=== PATIENT | male | born 1965 | race Caucasian/White ===

== ENCOUNTER → 2016-12-20 10:00 | Outpatient (CLI) | payer OTHER ==
[~2016-12-20 10:00] MED LIST: CATAPRES0.1 MG PO; FLAGYL500 MG PO; LEVAQUIN250 MG PO
== END | disposition home or self-care (01) ==
LOC: D.RAD 10:00
DX: Z02.71 Encounter for disability determination (principal)

== ENCOUNTER 2019-12-28 19:54 | Emergency (ER) | payer OTHER ==
[~2019-12-28] VITALS: Ht 172.7 cm; Wt 100.0 kg
[2019-12-28 20:01] VITALS: Ht 172.7 cm; Wt 100.0 kg
[2019-12-28 20:41] LABS: BASOPHILS 0.5 % (0-2); EOSINOPHILS 2.3 % (0-7); HEMATOCRIT 39.4 % (42.0-54.0); HEMOGLOBIN 13.4 g/dL (13.5-17.5); IMMATURE GRANULOCYTES 0.2 % (0-5); MCH 29.8 pg (26.0-34.0); MCV 87.6 fL (80.0-100.0); MEAN PLATELET VOLUME 9.1 fL (7.4-10.4); MONOCYTES 8.7 % (2-11); NEUTROPHILS 61.3 % (40-80); PLATELET COUNT 168 10x3/uL (130-400); RDW 12.5 % (11.5-14.5)
[2019-12-28] MEDS ORDERED: CYCLOBENZAPRINE10 MG PO (20:48)
[2019-12-28 20:56] LABS: ANION GAP 6.5 mmol/L (8-16); CARBON DIOXIDE 30.2 mmol/L (21.0-32.0); CREATININE - SERUM 1.5 mg/dL (0.6-1.3); POTASSIUM - SERUM 3.7 mmol/L (3.5-5.1)
[2019-12-28 21:01] LABS: BILIRUBIN NEGATIVE (NEGATIVE); GLUCOSE NEGATIVE (NEGATIVE); KETONE NEGATIVE (NEGATIVE); NITRITE NEGATIVE (NEGATIVE); UROBILINOGEN NORMAL (NORMAL)
[2019-12-28 21:02] LABS: WHITE CELLS - URINE 0-5 /hpf (NEGATIVE)
[2019-12-28 21:03] LABS: ALBUMIN 3.5 g/dL (3.4-5.0); BILIRUBIN - TOTAL 0.27 mg/dL (0.2-1.3); PROTEIN - SERUM 6.4 g/dL (6.4-8.2)
[2019-12-28] MEDS ORDERED: NEURONTIN 300300 MG PO (21:39)
== END 2019-12-29 00:07 | disposition home or self-care (01) ==
LOC: D.ER 19:54
PROVIDERS: Family Medicine
DX: M54.10 Radiculopathy, site unspecified (principal); M54.5 Low back pain; N28.9 Disorder of kidney and ureter, unspecified; I10 Essential (primary) hypertension; I25.2 Old myocardial infarction; Z72.0 Tobacco use; F03.90 Unspecified dementia, unspecified severity, without behavioral disturbance, psychotic disturbance, mood disturbance, and anxiety